=== PATIENT | female | born 1980 | race Caucasian/White ===

== ENCOUNTER 2024-11-13 12:00 | Emergency (ER) | payer OTHER ==
[2024-11-13 12:17] VITALS: BP 165/105; PULSE 102; RESP 17; TEMP 99.1; BMI 28.8
[2024-11-13] MEDS ORDERED: ALBUTEROL SO4 2.5/IPRATROPIUM 0.5 INH SOL 3 ML VIAL.NEB. NEB ONE (12:45)
[2024-11-13] MEDS ORDERED: ACETAMINOPHEN 325 MG TABLET (FP) ONE ×2 (12:45→12:48)
[2024-11-13] MEDS: ACETAMINOPHEN 500 MG TABLET (FP) PO ONE (12:58)
[2024-11-13] MEDS: ALBUTEROL SO4 2.5/IPRATROPIUM 0.5 INH SOL 3 ML VIAL.NEB. NEB SCH (13:06)
[2024-11-13] MEDS: AMOX TR/POT CLAV 875MG/125MG TABLETS (FP) PO ONE (13:22)
[2024-11-13 14:49] LABS: HIV INTERPRETATION NEGATIVE (NEGATIVE)
[2024-11-13 14:50] LABS: HCV DIAGNOSTIC IN-HOUSE W/RFLX NON-REACTIVE (NONREACTIVE)
== END 2024-11-13 14:21 | disposition home or self-care (01) ==
LOC: JER 12:00
PROC: 3E0F7GC Introduction of Other Therapeutic Substance into Respiratory Tract, Via Natural or Artificial Opening (ICD-10-PCS; principal; 2024-11-13)
DX: J45.909 Unspecified asthma, uncomplicated (principal); H66.93 Otitis media, unspecified, bilateral; R05.9 Cough, unspecified; R06.02 Shortness of breath; M79.10 Myalgia, unspecified site
CPT/HCPCS: 0241U-QW; 36415; 71046-TC-FY; 86803; 87389; 99284-25